=== PATIENT | male | born 1960 | race Asian ===

== ENCOUNTER 2016-12-19 06:36 | Day surgery (SDC) | payer OTHER ==
[~2016-12-19] VITALS: Ht 172.7 cm; Wt 65.2 kg
[2016-12-19] MEDS ORDERED: ALBUTEROL (07:39)
[2016-12-19] MEDS ORDERED: METFORMIN (07:39)
[2016-12-19] MEDS ORDERED: LOVASTATIN (07:39)
[2016-12-19] MEDS ORDERED: ASPIRIN (07:39)
[2016-12-19 07:42] VITALS: BP 144/83; PULSE 90; RESP 18; Ht 172.7 cm; Wt 65.2 kg
[2016-12-19] MEDS ORDERED: MIDAZOLAM 1 MG/ML 2 ML INJ ONE ×2 (08:53)
[2016-12-19] MEDS ORDERED: FENTAnyl 50 MCG/ML VIAL ONE (08:53)
[2016-12-19 09:05] VITALS: BP 123/77; RESP 20
--- NOTE | 2016-12-19 23:12 | GILP ---
DATE OF PROCEDURE: PROCEDURE PERFORMED: Colonoscopy with biopsy. INDICATION: A 56-year-old male undergoing this procedure for screening colonoscopy. The risk of th e procedure, related and unrelated complications, sedative risks, alternatives discussed. Informed consent was obtained. DESCRIPTION OF PROCEDURE: The patient was brought to the GI lab, sedated with Versed and fentanyl, total he received 4 mg of Versed, 100 mcg of fentanyl. After optimal sedation, digital examination done. Sphincter was normal. No mass was felt. No prostate was felt. Endoscope passed with much e ase into rectum, advanced through sigmoid, descending, transverse colon all the way into cecum, peep ed into terminal ileum which was normal. While coming out, mucosa thoroughly inspected. The rest o f the colon was normal. Diverticula seen in the right side of the colon including cecum. The rest of the colon appeared normal. Retroversion was difficult. IMPRESSION: 1. Normal findings all the way into the cecum. 2. Normal terminal ileum. 3. Clarity and cleanliness was good. 4. Diverticulosis on the right side of the colon. 5. Small hemorrhoid. PLAN: At this point is to stay on high-fiber diet. Dictated By: KISHOR EDWARD/IVY Conf#: [id number] DID#: [id number]
== END 2016-12-19 10:53 | disposition home or self-care (01) ==
LOC: GIL 06:36
PROVIDERS: ATTEND Internal Medicine Gastroenterology
DX: Z12.11 Encounter for screening for malignant neoplasm of colon (principal); K57.90 Diverticulosis of intestine, part unspecified, without perforation or abscess without bleeding; K64.9 Unspecified hemorrhoids
CPT/HCPCS: 45378; J2250; J3010; Z7610